=== PATIENT | male | born 1945 | race Caucasian/White ===

== ENCOUNTER 2023-09-25 03:34 | Inpatient (IN) | payer MEDICARE, MEDICAID ==
[~2023-09-25] VITALS: Ht 185.4 cm; Wt 120.1 kg
[2023-09-25 03:40] VITALS: PULSE 111; RESP 34; O2SAT 98
[2023-09-25] MEDS: FUROSEMIDE 20 MG/2 ML VIAL IVP ONE ×2 (03:47→04:03)
[2023-09-25] MEDS: NITROGLYCERIN 2% (1 GM=INCH) OINTMENT PACKET TP ONE (03:48)
[2023-09-25 04:17] LABS: BASOPHILS % (AUTO) 0.6 % (0.0-2.0); EOSINOPHILS % (AUTO) 1.1 % (1.0-6.0); HEMATOCRIT 36.4 % (41-53); HEMOGLOBIN 11.6 g/dL (13.5-17.5); LYMPHOCYTES # (AUTO) 1.5 K/uL (1.0-4.8); LYMPHOCYTES % (AUTO) 7.2 % (22.0-44.0); MEAN CORPUSCULAR HGB CONC 31.9 G/dL (31.0-37.0); MEAN CORPUSCULAR VOLUME 88 fL (80-100); MONOCYTES % (AUTO) 4.7 % (2.0-9.0); NEUTROPHILS # (AUTO) 17.8 K/uL (1.8-7.7); PLATELET COUNT (AUTO) 174 K/uL (150-450); RED BLOOD CELL COUNT(AUTO) 4.16 MIL/uL (4.50-5.90); RED CELL DISTRIBUTION WIDTH 18.6 % (11.5-14.5); WHITE BLOOD COUNT (AUTO) 20.5 K/uL (4.5-11.0)
[2023-09-25 04:20] LABS: NEUTROPHILS % (AUTO) 86.4 % (40.0-70.0)
[2023-09-25 04:24] LABS: CALCIUM, TOTAL 8.8 mg/dL (8.8-10.5); CREATININE 1.55 mg/dL (0.60-1.30); POTASSIUM 4.4 mmol/L (3.5-5.1)
[2023-09-25 04:29] LABS: INR 1.1 (0.9-1.1); PROTHROMBIN TIME 11.1 SEC (9.4-11.6)
[2023-09-25 04:30] LABS: TROPONIN I-HIGH SENSITIVITY 52 ng/L (<76)
[2023-09-25 04:33] LABS: ALBUMIN 2.8 g/dL (3.4-5.0); BILIRUBIN,TOTAL 0.5 mg/dL (0.1-1.0)
[2023-09-25 05:19] LABS: LACTIC ACID 0.9 mmol/L (0.4-2.0)
[2023-09-25] MEDS: CefTRIAXone 1 GM/DEXTROSE 50 ML IV ONE (06:29)
[2023-09-25] MEDS: AZITHROMYCIN 500 MG/NS 250 ML IV ONE (06:30)
[2023-09-25] MEDS ORDERED: BUPR-49 PO (11:19)
[2023-09-25] MEDS ORDERED: MIRT-93 PO (11:19)
[2023-09-25] MEDS ORDERED: TAMS0.4C94 PO (11:19)
[2023-09-25] MEDS ORDERED: ISOS20TA9 PO (11:19)
[2023-09-25] MEDS ORDERED: ATOR10TA69 PO (11:19)
[2023-09-25] MEDS ORDERED: SOMA6VIA SQ (11:19)
[2023-09-25] MEDS ORDERED: [UNRECOGNIZED DRUG - CODE] PO (11:19)
[2023-09-25] MEDS ORDERED: SACU1TAB7 PO (11:19)
[2023-09-25] MEDS ORDERED: CLOP75TA32 PO (11:19)
[2023-09-25] MEDS ORDERED: CARV12.530 PO (11:19)
[2023-09-25] MEDS ORDERED: TROS20TA3 PO (11:19)
[2023-09-25] MEDS ORDERED: DAPA10TA PO (11:19)
[2023-09-25] MEDS ORDERED: MUPI22OI2 TP (11:19)
[2023-09-25] MEDS ORDERED: HYDR25TA84 PO (11:19)
[2023-09-25] MEDS ORDERED: EZET10TA57 PO (11:19)
[2023-09-25] MEDS ORDERED: METH36TA22 PO (11:19)
[2023-09-25] MEDS ORDERED: MOXI3DRO12 OS (11:19)
[2023-09-25] MEDS ORDERED: AMIO200 PO (11:19)
[2023-09-25] MEDS ORDERED: OXYC5TAB3 PO (11:19)
[2023-09-25] MEDS ORDERED: PREDAOS OU (11:22)
[2023-09-25] MEDS ORDERED: KETO-108 OU (11:22)
[2023-09-25] MEDS ORDERED: ALBUTEROL SULFATE 2.5 MG/0.5 ML NEB SOLUTION NEB PRN (12:15)
[2023-09-25] MEDS ORDERED: IPRATROPIUM BROMIDE 0.5 MG/2.5 ML NEB SOLUTION NEB PRN (12:15)
[2023-09-25 12:31] VITALS: BP 152/75; PULSE 81; RESP 22; TEMP 98.7
[2023-09-25 14:00] VITALS: PULSE 86; PULSE 95; RESP 18; RESP 20; O2SAT 95; O2SAT 96
[2023-09-25] MEDS: ALBUTEROL SULFATE 2.5 MG/0.5 ML NEB SOLUTION NEB SCH (14:18)
[2023-09-25] MEDS: IPRATROPIUM BROMIDE 0.5 MG/2.5 ML NEB SOLUTION NEB SCH (14:18)
[2023-09-25 16:19] VITALS: BP 138/68; PULSE 76; RESP 20; TEMP 98
[2023-09-25] MEDS: BENZONATATE 100 MG CAPSULE PO SCH (17:07)
[2023-09-25] MEDS: MethylPREDNISolone SOD SUCC 125 MG/2 ML VIAL IVP SCH (17:08)
[2023-09-25 19:56] VITALS: BP 162/78; PULSE 86; RESP 22; TEMP 98
[2023-09-25] MEDS: HYDROCODONE/ACETAMINOPHEN 5-325 MG TABLET PO PRN (21:36)
[2023-09-25] MEDS: AMIODARONE HCL 200 MG TABLET PO SCH (21:40)
[2023-09-25] MEDS: HydrALAZINE HCL 25 MG TABLET PO SCH (21:40)
[2023-09-25] MEDS: ISOSORBIDE DINITRATE 20 MG TABLET PO SCH (21:40)
[2023-09-25] MEDS: GuaiFENesin SR 600 MG ER TABLET PO SCH (21:40)
[2023-09-25] MEDS: CARVEDILOL 12.5 MG TABLET PO SCH (21:40)
[2023-09-25] MEDS: SACUBITRIL/VALSARTAN 49-51 MG TABLET PO SCH (21:40)
[2023-09-25 23:44] VITALS: BP 145/70; PULSE 80; RESP 22; TEMP 98.4
[2023-09-26] VITALS (7 sets, daily range): BP systolic 129–153; BP diastolic 71–77; PULSE 72–76; RESP 18–20; TEMP 97.7–98.2; O2SAT 96
[2023-09-26] MEDS ORDERED: SODIUM CHLORIDE 0.9% 250 ML IV ONE (05:48)
[2023-09-26] MEDS: CefTRIAXone 1 GM/DEXTROSE 50 ML IV SCH (05:55)
[2023-09-26] MEDS: AZITHROMYCIN 500 MG/NS 250 ML IV SCH (06:46)
[2023-09-26 07:02] LABS: BASOPHILS % (AUTO) 0.1 % (0.0-2.0); EOSINOPHILS % (AUTO) 0 % (1.0-6.0); HEMATOCRIT 32.8 % (41-53); HEMOGLOBIN 10.6 g/dL (13.5-17.5); LYMPHOCYTES # (AUTO) 0.4 K/uL (1.0-4.8); MEAN CORPUSCULAR HEMOGLOBIN 28.5 pg (26.0-34.0); MEAN CORPUSCULAR HGB CONC 32.5 G/dL (31.0-37.0); MEAN CORPUSCULAR VOLUME 88 fL (80-100); MONOCYTES % (AUTO) 0.5 % (2.0-9.0); NEUTROPHILS # (AUTO) 5.6 K/uL (1.8-7.7); PLATELET COUNT (AUTO) 151 K/uL (150-450); RED BLOOD CELL COUNT(AUTO) 3.73 MIL/uL (4.50-5.90); RED CELL DISTRIBUTION WIDTH 18.4 % (11.5-14.5)
[2023-09-26 07:06] LABS: HEMOGLOBIN A1C 5.7 % (3.8-5.6)
[2023-09-26 07:12] LABS: NEUTROPHILS % (AUTO) 93.4 % (40.0-70.0)
[2023-09-26 07:37] LABS: CALCIUM, TOTAL 8.8 mg/dL (8.8-10.5); CHOL/HDL RATIO 2.6 (4.2-7.3); CREATININE 1.42 mg/dL (0.60-1.30)
[2023-09-26] MEDS: DARUNAVIR ETHANOLATE 800 MG TABLET PO SCH (08:10)
[2023-09-26] MEDS: TAMSULOSIN HCL 0.4 MG CAPSULE PO SCH (08:11)
[2023-09-26] MEDS: BuPROPion HCL XL 150 MG ER TABLET PO SCH (08:11)
[2023-09-26] MEDS: EZETIMIBE 10 MG TABLET PO SCH (08:11)
[2023-09-26] MEDS: ATORVASTATIN CALCIUM 10 MG TABLET PO SCH (08:12)
[2023-09-26] MEDS: FUROSEMIDE 40 MG/4 ML VIAL IVP SCH (08:12)
[2023-09-26] MEDS: CLOPIDOGREL BISULFATE 75 MG TABLET PO SCH (08:12)
[2023-09-26] MEDS: PERFLUTREN PROTEIN-A MICROSPHERES 0.22 MG/ML 3 ML VIAL IVP ONE (17:31)
[2023-09-26] MEDS: CARVEDILOL 25 MG TABLET PO SCH (22:01)
[2023-09-26] MEDS: HYDROCODONE/ACETAMINOPHEN 5-325 MG TABLET PO PRN (22:08)
[2023-09-27 04:04] VITALS: BP 143/75; PULSE 74; RESP 18; TEMP 97.9
[2023-09-27 07:21] LABS: EOSINOPHILS % (AUTO) 0 % (1.0-6.0); HEMATOCRIT 30.6 % (41-53); HEMOGLOBIN 9.9 g/dL (13.5-17.5); LYMPHOCYTES # (AUTO) 0.2 K/uL (1.0-4.8); LYMPHOCYTES % (AUTO) 3.1 % (22.0-44.0); MEAN CORPUSCULAR HEMOGLOBIN 28.3 pg (26.0-34.0); MEAN CORPUSCULAR HGB CONC 32.4 G/dL (31.0-37.0); MEAN CORPUSCULAR VOLUME 87 fL (80-100); MONOCYTES # (AUTO) 0.1 K/uL (0.1-1.0); MONOCYTES % (AUTO) 0.7 % (2.0-9.0); NEUTROPHILS # (AUTO) 7.7 K/uL (1.8-7.7); PLATELET COUNT (AUTO) 157 K/uL (150-450); RED BLOOD CELL COUNT(AUTO) 3.51 MIL/uL (4.50-5.90)
[2023-09-27 07:26] VITALS: BP 147/87; PULSE 76; RESP 18; TEMP 98
[2023-09-27 07:26] LABS: NEUTROPHILS % (AUTO) 96.2 % (40.0-70.0)
[2023-09-27 07:40] LABS: TROPONIN I-HIGH SENSITIVITY 63 ng/L (<76)
[2023-09-27] MEDS: FUROSEMIDE 40 MG TABLET PO SCH (08:21)
[2023-09-27 11:39] VITALS: BP 142/75; PULSE 69; RESP 18; TEMP 97.8
[2023-09-27] MEDS ORDERED: PRED-554 PO (13:09)
[2023-09-27] MEDS ORDERED: CLOP75TA60 PO (13:09)
[2023-09-27] MEDS ORDERED: BUPR-514 PO (13:09)
[2023-09-27] MEDS ORDERED: CARV25 PO (13:09)
[2023-09-27] MEDS ORDERED: AMOX-457 PO (13:09)
[2023-09-27] MEDS ORDERED: HYDR25TA84 PO (13:09)
[2023-09-27] MEDS ORDERED: AMIO200 PO (13:09)
[2023-09-27] MEDS ORDERED: ISOS20 PO (13:09)
[2023-09-27] MEDS ORDERED: FURO40 PO (13:09)
[2023-09-27] MEDS ORDERED: ATOR10TA69 PO (13:09)
[2023-09-27] MEDS ORDERED: BENZ-227 PO (13:09)
[2023-09-27] MEDS ORDERED: SACU1TAB7 PO (13:09)
== END 2023-09-27 14:15 | disposition home or self-care (01) | DRG 193 ==
LOC: EMS 03:35 → EDH 06:55 → 5S 12:15
PROVIDERS: ADMIT Internal Medicine; ATTEND Internal Medicine
PROC: 5A09357 Assistance with Respiratory Ventilation, Less than 24 Consecutive Hours, Continuous Positive Airway Pressure (ICD-10-PCS; principal; 2023-09-25)
DX: J18.9 Pneumonia, unspecified organism (principal); G93.41 Metabolic encephalopathy; J96.21 Acute and chronic respiratory failure with hypoxia; I50.33 Acute on chronic diastolic (congestive) heart failure; I13.0 Hypertensive heart and chronic kidney disease with heart failure and stage 1 through stage 4 chronic kidney disease, or unspecified chronic kidney disease; J44.0 Chronic obstructive pulmonary disease with (acute) lower respiratory infection; J44.1 Chronic obstructive pulmonary disease with (acute) exacerbation; I47.20 Ventricular tachycardia, unspecified; N17.9 Acute kidney failure, unspecified; I48.20 Chronic atrial fibrillation, unspecified; E78.5 Hyperlipidemia, unspecified; E11.22 Type 2 diabetes mellitus with diabetic chronic kidney disease; N40.0 Benign prostatic hyperplasia without lower urinary tract symptoms; N18.30 Chronic kidney disease, stage 3 unspecified; I25.10 Atherosclerotic heart disease of native coronary artery without angina pectoris; E66.9 Obesity, unspecified; Z95.5 Presence of coronary angioplasty implant and graft; Z79.01 Long term (current) use of anticoagulants; Z79.899 Other long term (current) drug therapy; Z68.34 Body mass index [BMI] 34.0-34.9, adult; Z88.7 Allergy status to serum and vaccine
CPT/HCPCS: 71045; 80048; 80053; 80061; 82550; 83036; 83605; 83735; 83880; 84145; 84484; 85025; 85610; 85730; 87040; 87081; 93005; 93306; 94640; 94660; 97162; 99285; C8924; G0378; J0456; J0696; J1940; J2919; J7050; Q9967; 36415-L1; 36415-TC; J7613